=== PATIENT | female | born 1980 | race American Indian/Alaskan Native ===

== ENCOUNTER 2017-08-16 09:00 | Inpatient (IN) | payer OTHER ==
[2017-08-09 10:13] VITALS: BMI 33.8
[2017-08-19] MEDS ORDERED: Midazolam 2 MG/2 ML VIAL ONE (10:16)
[2017-08-19] MEDS ORDERED: Lidocaine Hydrochloride 5 ML INJ ONE (10:16)
[2017-08-19] MEDS ORDERED: Propofol 10 mg/ml Inj (20 ML) ONE (10:16)
[2017-08-19] MEDS ORDERED: ceFAZolin IV 2 gm in Dextrose 2 GM/50 ML BAG IVPB ONE (10:32)
[2017-08-19] MEDS ORDERED: Vasopressin 20 Units/ml Inj ONE (10:33)
[2017-08-19] MEDS ORDERED: Neostigmine Methylsulfate 3mg/3ml Syringe IV ONE (11:47)
[2017-08-19] MEDS ORDERED: Bupivacaine HCl 0.25% PF (10 ml) Inj ONE (12:12)
[2017-08-19] MEDS ORDERED: Bupivacaine 0.5% Inj(30mL) ONE (12:13)
--- NOTE | 2017-08-19 12:48 | PCM.SURG1 ---
Surgeon's Initial Post Op Note - Surgeon's Notes Surgeon: Ariana Iglesias MD Health Navigator: Nick Martinez MD Type of Anesthesia: General Endo Pre-Operative Diagnosis: Sympomatic fibroid uterus, abnormal uterine bleeding, pelvic pain Operative Findings: 6-8 weeks uterus anteior 7cm myoma anterior over fundus protruding into endometrial cavity, normal appearing tubes adn ovaries bilaterally,. Dr Nick Martinez was hand frame surgical elastic knitter and was present for entire case and essential in gaining entry, retraction, exposure, removing myoma, obtaingn hemostaiss, closign all layers. Post-Operative Diagnosis: same as above Operation Performed: Abdominal myomectomy Specimen/Specimens Removed: leiomyoma Estimated Blood Loss: EBL {In ML}: 200 Blood Products Given: N/A Drains Used: No Drains Post-Op Condition: Good Date of Surgery/Procedure: 08/19/17 Time of Surgery/Procedure: 11:00
[2017-08-19] MEDS ORDERED: Oxycodone/Acetaminophen 5/325 mg Tab PO PRN (12:49)
[2017-08-19] MEDS: HYDROmorphone 0.5 mg/0.5 ml ISec IVP PRN ×5 (13:04→14:01)
[2017-08-19] MEDS ORDERED: Lactated Ringer's 1,000 ML IV SCH (13:15)
[2017-08-19] MEDS ORDERED: Lactated Ringer's 1,000 ML IV ONE (14:30)
[2017-08-19] MEDS: ceFAZolin IV 2 gm in Dextrose 1 GM/50 ML BAG IVPB SCH (18:15)
[2017-08-20] MEDS: ceFAZolin IV 2 gm in Dextrose 1 GM/50 ML BAG IVPB SCH (02:38)
--- NOTE | 2017-08-20 02:44 | OP ---
PROCEDURE DATE: 08/19/2017 PREOPERATIVE DIAGNOSES: Symptomatic fibroid uterus, abnormal uterine bleeding, pelvic pain. POSTOPERATIVE DIAGNOSES: Symptomatic fibroid uterus, abnormal uterine bleeding, pelvic pain. PROCEDURE PERFORMED: Abdominal myomectomy. SURGEON: Ariana Iglesias MD COMMUNITY ENGAGEMENT MANAGER: Dr. Nick Martinez. TYPE OF ANESTHESIA: General endotracheal. OPERATIVE FINDINGS: A 15-week sized uterus and 7 cm myoma anterior over the fundus protruding into endometrial cavity, normal-appearing tubes and ovaries bilaterally. Dr. Nick Martinez was surgical garment assembly supervisor, presents for the entire case and essential in gaining entry, retraction, exposure, and removing myoma, obtaining hemostasis and closing all layers. SPECIMEN: Removed leiomyoma. ESTIMATED BLOOD LOSS: 200 mL. BLOOD PRODUCTS: None. COMPLICATIONS: None. DESCRIPTION OF PROCEDURE: On bimanual examination, the patient was noted to have an enlarged approximately 15-week sized uterus that was really mobile and anteverted with no adnexal masses. Surgically, the patient had an enlarged fibroid uterus with a large anterior myoma approximately 7 cm. Both ovaries and tubes appeared normal bilaterally. The patient was taken to the operating room where she was prepped and draped in the usual sterile fashion in the dorsal supine position. After the general anesthetic was found to be adequate, a Pfannenstiel skin incision was made with first knife. This was carried through to the underlying fascia with the second knife. The fascia was incised in the midline with the second knife,and the fascial incision was extended laterally in both directions with the Bovie. The superior aspect of the fascial incision was then grasped with Heather clamps, tented up, and the underlying rectus muscles were dissected off bluntly. Attention was then turned to the inferior aspect where in a similar fashion the fascia was grasped, elevated with Heather clamps, and underlying rectus muscles dissected off bluntly. The underlying rectus muscle was then bluntly in the midline. The peritoneum was identified; with hemostat and clamps tented up and entered sharply with Metzenbaum scissors. The peritoneal incision was then extended superiorly, inferiorly and extended bluntly. Next, the uterus was then grasped bluntly and removed from the abdomen. The fundal fibroid was identified and it was injected with vasopressin 20 units mixed in 30 mL of normal saline along the serosal surface and careful to aspirate and avoid any blood vessels, 15 mL was injected. Next, the point tip was used with a cautery along the anterior edge, curvilinear incision along the top of the myoma until the fibroids were seen. The edges of the myometrium were grasped with Allis clamp, tented up, and hemostat was used to bluntly dissect around the fibroids following blunt dissection with a finger. The fibroid was easily and bluntly dissected out. It was also grasped with a single-tooth tenaculum to help with traction. Once the blunt dissection of the large fibroid, it was handed off to the scrub nurse. The large fibroid transversed the whole myometrium down to the mucosal surface of the endometrial cavity and *------*when this fibroid was removed in a small portion. At this point, there was close inspection, and no other gross myomas were visualized. The uterine incision was then closed first with interrupted 0 chromic in interrupted [id number] fashion and then with 0 Vicryl in a running baseball stitch. Uterus was then seen to be completely hemostatic after closure. Next, a 3 x 4 piece of Surgicel was then placed over the incision and tacked in. The uterus was then carefully returned to the abdomen and careful not to disturb the Surgicel. There was good hemostasis noted. Next, the greater omentum was replaced over the uterus. The rectus muscle was then reapproximated with 3-0 chromic in interrupted fashion. Then the fascia was reapproximated and closed with 0 Vicryl in running continuous fashion. The subcutaneous layers were closed with 2-0 plain in interrupted manner. The skin was reapproximated and closed with 4-0 Vicryl in running subcuticular fashion. The incision was then dressed with 0.5-inch Steri-Strips and bandaged appropriately. The patient was then cleaned and taken to the recovery room in a stable condition. At the end of the procedure, all needle, sponge and instrument counts were noted and correct x2. The patient tolerated the procedure well and was transferred to the recovery room in stable condition. Ariana Iglesias MD
[2017-08-20] MEDS: Oxycodone/Acetaminophen 5/325 mg Tab PO PRN ×2 (04:38→09:41)
--- NOTE | 2017-08-20 07:37 | CP.PCM.PN ---
Subjective - Date & Time of Evaluation Date of Evaluation: 08/20/17 Time of Evaluation: 07:10 - Subjective Subjective: Patient was seen and examined at bedside. Patient reports that she is doing well and pain is well-controlled. Patient denies fever, chills, nausea, vomiting , passing flatus,BM. Patient is out of bed and davidson catheter was discontinued this morning. Objective - Vital Signs/Intake and Output Vital Signs (last 24 hours): Temp Pulse Resp BP Pulse Ox 99.2 F 69 20 138/86 100 08/20/17 00:00 08/20/17 00:00 08/20/17 00:00 08/20/17 00:00 08/20/17 00:00 Intake and Output: 08/20/17 08/20/17 06:59 18:59 Intake Total 2590 Output Total 1500 Balance 1090 - Medications Medications: Current Medications Acetaminophen (Tylenol 325mg Tab) 650 mg PO Q6 PRN PRN Reason: Fever >100.4 F Docusate Sodium (Colace) 100 mg PO BID [facility] Hydromorphone/Sodium Chloride (Dilaudid Machine Boss) 4.8 mg IV Q4H PRN; Protocol PRN Reason: Pain, moderate (4-7) Lactated Ringer's (Lactated Ringer's) 1,000 mls @ 125 mls/hr IV .Q8H [facility] Last Admin: 08/19/17 23:16 Dose: 125 mls/hr Ibuprofen (Motrin Tab) 600 mg PO Q4 PRN PRN Reason: Pain, Mild (1-3) Oxycodone/Acetaminophen (Percocet 5/325 Mg Tab) 1 tab PO Q4H PRN PRN Reason: Pain, moderate (4-7) Stop: 08/22/17 12:50 Oxycodone/Acetaminophen (Percocet 5/325 Mg Tab) 2 tab PO Q4H PRN PRN Reason: Pain, severe (8-10) Stop: 08/22/17 12:50 Last Admin: 08/20/17 04:38 Dose: 2 tab Sennosides (Senokot Tab) 17.2 mg PO HS [facility] Simethicone (Mylicon Chew Tab) 80 mg PO QID [facility] - Constitutional Appears: Well, Non-toxic - Head Exam Head Exam: ATRAUMATIC, NORMAL INSPECTION - Eye Exam Eye Exam: EOMI, Normal appearance - ENT Exam ENT Exam: Mucous Membranes Moist - Respiratory Exam Respiratory Exam: Clear to Ausculation Bilateral, NORMAL BREATHING PATTERN - Cardiovascular Exam Cardiovascular Exam: REGULAR RHYTHM, +S1, +S2 - GI/Abdominal Exam GI & Abdominal Exam: Soft, Tenderness, Normal Bowel Sounds. absent: Distended, Firm, Guarding, Rigid Additional comments: Appropriately tender, incision is clean, dry and intact - Extremities Exam Extremities Exam: Normal Inspection. absent: Calf Tenderness, Pedal Edema, Tenderness - Neurological Exam Neurological Exam: Alert, Awake, Oriented x3 - Psychiatric Exam Psychiatric exam: Normal Affect, Normal Mood Assessment and Plan - Assessment and Plan (Free Text) Assessment: 37 year old female with no significant past medical history who is s/p abdominal myomectomy due to sympomatic fibroid uterus, abnormal uterine bleeding and pelvic pain Plan: 1. Stable, Afebrile 2. Pain control: Percocet, motrin as needed 3. Davidson discontinued: voiding trial 4. Monitor for bowel function 5. Encourage ambulation and incentive spirometer use 6. Advanced diet as tolerated 7. Possible discharge tomorrow 8. Plans discussed with attending Ethel Kelley DO, PGY-1
[2017-08-20 08:01] LABS: HEMATOCRIT 32.7 % (34.0-47.0); MEAN CELL VOLUME 74.9 fL (81.0-99.0); MEAN CORPUSCULAR HEMOGLOBIN 23.9 pg (27.0-31.0); MEAN CORPUSCULAR HGB CONC 31.9 g/dL (33.0-37.0); MEAN PLATELET VOLUME 8.4 fL (7.2-11.7); RED CELL DISTRIBUTION WIDTH 21.9 % (11.5-14.5)
[2017-08-20 08:02] LABS: WHITE BLOOD COUNT 12.9 K/uL (4.8-10.8)
[2017-08-20 08:08] LABS: CHLORIDE 101 mmol/L (98-107); POTASSIUM 3.7 mmol/L (3.6-5.2); SODIUM 135 mmol/L (132-148)
[2017-08-20 08:10] LABS: BILIRUBIN,TOTAL 0.8 mg/dL (0.2-1.3); GFR AFRICAN-AMERICAN > 60
[2017-08-20 08:11] LABS: ALB/GLOB RATIO 1.2 (1.0-2.1); ALKALINE PHOSPHATASE 58 U/L (38-126); ALT/SGPT 28 U/L (9-52); AST/SGOT 24 U/L (14-36); BLOOD UREA NITROGEN 12 mg/dL (7-17); CARBON DIOXIDE 25 mmol/L (22-30); GLUCOSE,RANDOM 108 mg/dL (65-105); TOTAL PROTEIN 6.8 g/dL (6.3-8.3)
[2017-08-20 08:12] LABS: CALCIUM 8.1 mg/dl (8.6-10.4)
[2017-08-20] MEDS: Simethicone 80 mg Chewtab PO SCH ×4 (09:40→21:39)
[2017-08-21 00:50] VITALS: O2SAT 98
--- NOTE | 2017-08-21 07:36 | CP.PCM.PN ---
Subjective - Date & Time of Evaluation Date of Evaluation: 08/21/17 Time of Evaluation: 07:30 - Subjective Subjective: Patient was seen and examined at bedside. Patient is doing well and pain is well -controlled. Patient is tolerating diet and ambulating. Patient admits to passing flatus, urinating without difficulty. Patient denies fever, chills, nausea, vomiting, BM, chest pain, SOB, palpitations and calf tenderness. Objective - Vital Signs/Intake and Output Vital Signs (last 24 hours): Temp Pulse Resp BP Pulse Ox 97.5 F L 79 20 106/67 98 08/21/17 00:00 08/21/17 00:00 08/21/17 00:00 08/21/17 00:00 08/21/17 00:00 - Medications Medications: Current Medications Acetaminophen (Tylenol 325mg Tab) 650 mg PO Q6 PRN PRN Reason: Fever >100.4 F Docusate Sodium (Colace) 100 mg PO BID [facility] Last Admin: 08/20/17 17:26 Dose: 100 mg Hydromorphone/Sodium Chloride (Dilaudid Skate Hop) 4.8 mg IV Q4H PRN; Protocol PRN Reason: Pain, moderate (4-7) Lactated Ringer's (Lactated Ringer's) 1,000 mls @ 125 mls/hr IV .Q8H [facility] Last Admin: 08/19/17 23:16 Dose: 125 mls/hr Ibuprofen (Motrin Tab) 600 mg PO Q4 PRN PRN Reason: Pain, Mild (1-3) Last Admin: 08/20/17 20:08 Dose: 600 mg Oxycodone/Acetaminophen (Percocet 5/325 Mg Tab) 1 tab PO Q4H PRN PRN Reason: Pain, moderate (4-7) Stop: 08/22/17 12:50 Oxycodone/Acetaminophen (Percocet 5/325 Mg Tab) 2 tab PO Q4H PRN PRN Reason: Pain, severe (8-10) Stop: 08/22/17 12:50 Last Admin: 08/20/17 09:41 Dose: 2 tab Sennosides (Senokot Tab) 17.2 mg PO HS [facility] Last Admin: 08/20/17 23:22 Dose: Not Given Simethicone (Mylicon Chew Tab) 80 mg PO QID [facility] Last Admin: 08/20/17 21:39 Dose: 80 mg - Labs Labs: 08/20/17 07:30 08/20/17 07:30 - Constitutional Appears: Well, No Acute Distress - Head Exam Head Exam: ATRAUMATIC, NORMAL INSPECTION - Eye Exam Eye Exam: EOMI, Normal appearance - ENT Exam ENT Exam: Mucous Membranes Moist - Respiratory Exam Respiratory Exam: Clear to Ausculation Bilateral, NORMAL BREATHING PATTERN - Cardiovascular Exam Cardiovascular Exam: REGULAR RHYTHM, +S1, +S2 - GI/Abdominal Exam GI & Abdominal Exam: Soft, Tenderness Additional comments: Appropriately tender s/p myomyectomy - Extremities Exam Extremities Exam: Normal Inspection. absent: Calf Tenderness, Pedal Edema - Neurological Exam Neurological Exam: Alert, Awake, Oriented x3 - Psychiatric Exam Psychiatric exam: Normal Affect, Normal Mood - Skin Skin Exam: Normal Color Assessment and Plan - Assessment and Plan (Free Text) Assessment: 37 year old female with no significant past medical history who is s/p abdominal myomectomy due to sympomatic fibroid uterus, abnormal uterine bleeding and pelvic pain, POD #1 Plan: 1. Stable, Afebrile 2. Pain is well-controlled 3. Continue to encourage ambulation and hydration 4. Anticipate discharge today 5. Plans discussed with attending Ethel Kelley DO, PGY-1
[2017-08-21 07:56] LABS: BASO # 0.1 K/uL (0.0-0.2); BASO % 0.9 % (0.0-2.0); EOS % 0.5 % (0.0-4.0); HEMATOCRIT 32.1 % (34.0-47.0); LYMPH % 21.1 % (20.0-40.0); MEAN CORPUSCULAR HEMOGLOBIN 24.4 pg (27.0-31.0); MEAN CORPUSCULAR HGB CONC 32.1 g/dL (33.0-37.0); MEAN PLATELET VOLUME 7.9 fL (7.2-11.7); MONO # 0.8 K/uL (0.0-0.8); MONO % 8.6 % (0.0-10.0); RED CELL DISTRIBUTION WIDTH 21.4 % (11.5-14.5); WHITE BLOOD COUNT 9.5 K/uL (4.8-10.8)
[2017-08-21 08:37] LABS: ALB/GLOB RATIO 1.2 (1.0-2.1); ALKALINE PHOSPHATASE 55 U/L (38-126); ALT/SGPT 30 U/L (9-52); AST/SGOT 20 U/L (14-36); BILIRUBIN,TOTAL 0.7 mg/dL (0.2-1.3); BLOOD UREA NITROGEN 10 mg/dL (7-17); CALCIUM 7.9 mg/dl (8.6-10.4); CARBON DIOXIDE 29 mmol/L (22-30); CHLORIDE 102 mmol/L (98-107); GFR AFRICAN-AMERICAN > 60; GLUCOSE,RANDOM 98 mg/dL (65-105); POTASSIUM 3.8 mmol/L (3.6-5.2); SODIUM 137 mmol/L (132-148); TOTAL PROTEIN 6.7 g/dL (6.3-8.3)
[2017-08-21 09:11] VITALS: BP 134/90; PULSE 85; RESP 18; TEMP 98
[2017-08-21] MEDS: Simethicone 80 mg Chewtab PO SCH (10:50)
[2017-08-21] MEDS ORDERED: Influenza Vaccine 60 mcg/0.5 mL SYR (4YR UP) IM ONE (14:21)
== END 2017-08-21 13:00 | disposition home or self-care (01) | DRG 743 ==
LOC: C.9S 08-19 07:56 → C.4M 08-19 12:41
PROVIDERS: ADMIT Obstetrics & Gynecology; ATTEND Obstetrics & Gynecology
PROC: 0UB90ZZ Excision of Uterus, Open Approach (ICD-10-PCS; principal; 2017-08-19 10:15)
DX: D25.9 Leiomyoma of uterus, unspecified (principal); R10.2 Pelvic and perineal pain; N93.9 Abnormal uterine and vaginal bleeding, unspecified